=== PATIENT | female | born 1980 | race Caucasian/White ===

== ENCOUNTER 2021-10-14 13:08 | Observation (INO) ==
[2021-10-14] MEDS ORDERED: VANCOMYCIN PER PHARMACY IV ONE (13:33)
[2021-10-14] MEDS ORDERED: PIPERACILLIN SODIUM/TAZOBACTAM 3.375 GM in DEXTROSE 5% IN WATER 50 ML IV ONE (13:33)
[2021-10-14] MEDS ORDERED: 0.9 % SODIUM CHLORIDE 1,640 ML IV ONE (13:33)
[2021-10-14 13:39] LABS: POC Calcium, Ionized 1.16 (1.16-1.32); POC Creatinine 0.6 (0.6-1.2); POC Potassium 4.4 (3.3-5.1)
--- NOTE | 2021-10-14 13:39 | Emergency Department Note ---
Skin/Abscess/FB HPI General Chief complaint: Skin/Abscess/Rash Stated complaint: possibly cellulitus Time Seen by Provider: 10/14/21 13:14 Source: patient and family Mode of arrival: ambulatory Limitations: no limitations History of Present Illness HPI Narrative: Narrative: 41-year-old female with a history of recurrent cellulitis with multiple admissions and history of sepsis secondary to soft tissue cellulitis of lower extremity presents the ER to be evaluated for increasing redness, tenderness and swelling of the right lower extremity with a fever of 101.8 and tachycardia. She states she feels like previous episodes of cellulitis that led to sepsis. She has noticed over the last few days the increasing redness and swelling. She woke up with a fever this morning and has had body aches that been ascending from the right lower extremity up her body. She has not had any nausea vomiting, chest pain, chest pressure or shortness of breath she denies abdominal pain, dysuria, urgency or frequency. She states she has friction boils on her inner thighs. She has no other complaints at this time. She does not take any medications on a daily basis but she did start clindamycin yesterday. Related Data Home Medications Medication Instructions Recorded Confirmed albuterol sulfate 90 mcg/actuation 2 puff inhalation Q6H PRN Wheezing 05/28/19 10/14/21 aerosol inhaler (ProAir HFA) Allergies Allergy/AdvReac Type Severity Reaction Status Date / Time codeine Allergy Intermediate Headache Verified 09/28/19 10:43 Review of Systems ROS ROS Narrative: Narrative: All systems ED: reviewed and negative except as stated. PFS Narrative Patient History Narrative: Narrative: Medical/Surgical/Family History All Active Problems (Updated 10/14/21 @ 16:02 by Reynaldo Moore PA-C) Chronic sinusitis (Acute) Cellulitis (Acute) Dental abscess (Acute) Cough (Acute) History of allergic rhinitis (Acute) History of asthma (Acute) Social History Smoking Status: Never smoker Substance Use: does not use Exam Narrative Narrative: Narrative: Gen: No acute distress Eyes: PERRL, no conjunctival injection , and symmetrical lids. Sclerae non icteric HENMT: Normocephalic Atraumatic head, external nose and ears. Moist MM. CVS: +S1/S2, No murmurs or gallops. Radial pulses 2+ and equal bilat. No swelling RESP: Unlabored respiratory effort . Clear to auscultation bilaterally (CTAB). No noted wheezes rales or ronchi. GI: Nontender/Nondistended (NTND), No focal tenderness : Patient has boils on mons pubis and on both inner thighs without any evidence of cellulitis. MSK: Cellulitis on the right anterior mera with warmth, scar from previous cellulitis. There is a significant margin of erythema and it is very warm. There is no drainage, fluctuance or purulence. DP and PT are 2+, cap refill less than 2 Skin: Warm, Dry .. Cap refill less than 2. Psych: Awake, Alert, & Oriented (AAO) x3. Appropriate mood and affect . General Limitations: no limitations Course Vital Signs Vital signs: Vital Signs Temperature 101.8 F H 10/14/21 13:10 Pulse Rate 119 H 10/14/21 13:10 Respiratory Rate 18 10/14/21 13:10 Blood Pressure 126/69 10/14/21 13:10 Pulse Oximetry (%) 96 10/14/21 13:10 Oxygen Delivery Method 10/14/21 13:10 Temperature 100.9 F H 10/14/21 14:22 Pulse Rate 105 H 10/14/21 15:55 Respiratory Rate 16 10/14/21 15:55 Blood Pressure 124/64 10/14/21 15:55 Pulse Oximetry (%) 99 10/14/21 15:55 Oxygen Delivery Method 10/14/21 13:10 MDM MDM Narrative Medical decision making narrative: Narrative: Patient denies history of MRSA as she has a history of cellulitis and sepsis secondary to this. She is tachycardic at 119 and febrile with a temperature of 101.8. She will be assumed septic at time of evaluation and will be started on vancomycin and Zosyn will be given empiric fluid bolus. She will be evaluated with a CBC, Chem-8, hepatic panel, CG 4, ESR, CRP, procalcitonin, UA, chest x- ray, flu, covid and MRSA. And blood cultures Blood Cultures: Pending CBC: White count of 18.7 with left shift Chem-8: Normal Hepatic panel: Normal CG 4: Lactic acid is normal, unremarkable ESR: 29 H CRP: Very elevated at 4.3 Procalcitonin: elevated at 0.14 Flu: Negative Covid: Negative MRSA: Pending UA: Pending Dip shows no evidence of infection Chest x-ray:IMPRESSION: No acute disease Interpreted and Authenticated by: Garrett Simon 10/14/21 Reevaluation: Patient states she is improving after fluids. Exam remains the same. Repeat lactate will be ordered. Lactic: Patient will be admitted for cellulitis Dr. Frederick will be down to evaluate the patient. Sepsis Sepsis Identified: Yes Time Zero: 1340 Lab Data Result diagrams: 10/14/21 13:36 Labs: Lab Results 10/14/21 10/14/21 10/14/21 Range/Units 13:30 13:30 13:30 WBC TNP RBC TNP Hgb TNP Hct TNP POC Hct (36-48) MCV TNP MCH TNP MCHC TNP RDW TNP Plt Count TNP MPV TNP Immature Gran % (Auto) TNP Neut % (Auto) TNP Lymph % (Auto) TNP [place] % (Auto) TNP Eos % (Auto) TNP Baso % (Auto) TNP Lymph # (Auto) TNP [place] # (Auto) TNP Eos # (Auto) TNP Baso # (Auto) TNP Immature Gran # TNP Absolute Neutrophils TNP Differential Comment TNP ESR TNP POC VBG pH (7.32-7.42) POC VBG pCO2 at Temp (41-51) POC VBG pO2 (25-40) POC VBG HCO3 (24-28) POC VBG Total CO2 (25-29) POC Venous O2 Sat (40-70) POC VBG Base Excess (-2-2) VBG Lactic Acid (0.5-2) POC Sodium (133-145) POC Potassium (3.3-5.1) POC Chloride (96-108) POC Total CO2 (22-30) POC BUN (6-20) POC Creatinine (0.6-1.2) POC Glucose (70-105) POC WB Ioniz Calcium (1.16-1.32) Total Bilirubin 0.5 (0.1-1.0) mg/dL Direct Bilirubin < 0.2 (0-0.3) mg/dL AST 20 (<32) U/L ALT 19 (<40) U/L Alkaline Phosphatase 76 (39-117) U/L C-Reactive Protein 4.30 H (0.03-0.80) mg/dL Total Protein 7.3 (5.9-8.4) gm/dL Albumin 4.1 (3.2-5.2) gm/dL Globulin 3.2 (2.2-3.7) gm/dL Procalcitonin 0.14 H (<0.10) ng/mL 10/14/21 10/14/21 10/14/21 Range/Units 13:34 13:36 13:36 WBC 18.7 H RBC 4.80 Hgb 13.0 Hct 40.9 POC Hct 42.0 (36-48) MCV 85.2 MCH 27.1 MCHC 31.8 RDW 13.4 Plt Count 367 MPV 10.4 Immature Gran % (Auto) 0.5 Neut % (Auto) 88.4 H Lymph % (Auto) 5.9 L [place] % (Auto) 4.7 Eos % (Auto) 0.2 Baso % (Auto) 0.3 Lymph # (Auto) 1.10 L [place] # (Auto) 0.88 Eos # (Auto) 0.03 Baso # (Auto) 0.05 Immature Gran # 0.09 H Absolute Neutrophils 16.50 H Differential Comment ESR 29 H POC VBG pH 7.45 H (7.32-7.42) POC VBG pCO2 at Temp 39.1 L (41-51) POC VBG pO2 41 H (25-40) POC VBG HCO3 27.2 (24-28) POC VBG Total CO2 28.0 (25-29) POC Venous O2 Sat 79.0 H (40-70) POC VBG Base Excess 3.0 H (-2-2) VBG Lactic Acid 1.4 (0.5-2) POC Sodium 137 (133-145) POC Potassium 4.4 (3.3-5.1) POC Chloride 102 (96-108) POC Total CO2 27.0 (22-30) POC BUN 11 (6-20) POC Creatinine 0.6 (0.6-1.2) POC Glucose 101 (70-105) POC WB Ioniz Calcium 1.16 (1.16-1.32) Total Bilirubin (0.1-1.0) mg/dL Direct Bilirubin (0-0.3) mg/dL AST (<32) U/L ALT (<40) U/L Alkaline Phosphatase (39-117) U/L C-Reactive Protein (0.03-0.80) mg/dL Total Protein (5.9-8.4) gm/dL Albumin (3.2-5.2) gm/dL Globulin (2.2-3.7) gm/dL Procalcitonin (<0.10) ng/mL ED POC Tests ED POC Tests: PHI - Influenza A Negative PHI - Influenza B Negative PHI - SARS Antigen Negative Discharge Plan Patient/Caregiver Discharge Instructions Pt seen by DEVELOPMENT ARCHITECT/PA only: Yes Clinical Impression: Cellulitis Patient Disposition: Xfer As Inpt ([facility]) Follow up with: No,PCP [Primary Care Provider] - Prescriptions: No Action albuterol sulfate [ProAir HFA] 90 mcg/actuation HFA aerosol inhaler 2 puff INHALATION Q6H PRN (Reason: Wheezing)
[2021-10-14] MEDS ORDERED: VANCOMYCIN 1,500 MG in 0.9 % SODIUM CHLORIDE 500 ML IV SCH (13:45)
--- NOTE | 2021-10-14 14:11 | XRay Report ---
CLINICAL INFORMATION: Cough COMPARISON: None. TECHNIQUE: Portable FINDINGS: The heart size, mediastinum and pulmonary vessels are unremarkable. 7 cm rounded density, in the right cardiophrenic angle, likely represents a prominent fat pad or pericardial cyst. The lungs are clear. There are no effusions. The bones and soft tissues are within normal limits. IMPRESSION: No acute disease Interpreted and Authenticated by: Garrett Simon 10/14/21
[2021-10-14] MEDS ORDERED: ACETAMINOPHEN 325 MG TABLET PO ONE (14:22)
[2021-10-14 14:45] LABS: ALT/SGPT 19 U/L (<40); AST/SGOT 20 U/L (<32); Albumin 4.1 gm/dL (3.2-5.2); Alkaline Phosphatase 76 U/L (39-117); Bilirubin,Direct < 0.2 mg/dL (0-0.3); Bilirubin,Total 0.5 mg/dL (0.1-1.0); Globulin 3.2 gm/dL (2.2-3.7)
[2021-10-14 15:19] LABS: Basophils # (Auto) 0.05 K/mcL (0.00-0.30); Basophils % (Auto) 0.3 % (0.0-2.0); Eosinophils # (Auto) 0.03 K/mcL (0.00-0.70); Eosinophils % (Auto) 0.2 % (0.0-7.0); Hematocrit 40.9 % (34.1-44.9); Lymphocytes % (Auto) 5.9 % (15.5-49.0); Mean Cell Volume 85.2 fL (80.0-100.0); Mean Corpuscular HGB Conc 31.8 g/dL (31.0-36.0); Mean Platelet Volume 10.4 fL (7.4-10.4); Monocytes # (Auto) 0.88 K/mcL (0.10-0.90); Monocytes % (Auto) 4.7 % (1.0-12.0); Neutrophils % (Auto) 88.4 % (38.0-78.0); Platelet Count 367 K/mcL (140-440); Red Cell Distribution Width 13.4 % (11.5-14.5); WBC 18.7 K/mcL (4.5-11.0)
[2021-10-14 15:34] LABS: Erythrocyte Sedimentation Rate 29 mm/hr (0-20)
--- NOTE | 2021-10-14 17:06 | Internal Med History&Physical ---
HPI History of Present Illness Patient information: Note initiated : 10/14/21 at 4:59 pm Service Date, if different from initiated Date: [] Patient: Adelina Bryant 41 y/o F admitted on for possibly cellulitus. Chief Complaint: [] History of present illness: Ms. Bryant is a 41 year old female with a history of allergies, asthma, obesity, prior episodes of cellulitis who presents to the emergency department with right lower extremity redness, warmth, tenderness, as well as chills and a fever at home. Patient was concerned about cellulitis as this is similar to her prior episodes of cellulitis. In the emergency department, the patient had a fever, was tachycardic and intermittently hypotensive. Laboratory work-up revealed a leukocytosis, lactic acid was normal. The patient received vancomycin and Zosyn in the ED as well as IV fluid. Hospital medicine was consulted for admission. The patient denies a history of MRSA infections. She says that she last had a course of antibiotics about 2 years ago. The cellulitis on her right lower extremity is nonpurulent. Review of systems Constitutional: Positive for chills and fever Eyes: no vision changes or pain Cardiovascular: no chest pain, no palpitations Respiratory: no cough or dyspnea Gastrointestinal: no abdominal pain, no nausea, vomiting, or diarrhea Genitourinary: no dysuria or difficulty voiding Musculoskeletal: no arthralgia or myalgia Integumentary: Positive for right lower extremity redness and tenderness Neurological: no focal weakness or numbness Psychiatric: no anxiety or depression Physical exam Head: Atraumatic, normal inspection. Eyes: normal appearance, no scleral icterus. Neck: full ROM Respiratory: no respiratory distress. Cardiovascular: normal rate and rhythm, S1, S2. GI/Abdominal: soft, nontender, no guarding. Extremities: full range of motion, nontender. Neurological: CN II-XII intact, intact motor, intact sensation. Psychiatric: normal mood. Skin: Nonpurulent erythema on right leg. PFSH PFSH All Active Problems (Updated 10/14/21 @ 16:02 by Reynaldo Moore PA-C) Chronic sinusitis (Acute) Cellulitis (Acute) Dental abscess (Acute) Cough (Acute) History of allergic rhinitis (Acute) History of asthma (Acute) Social History (Updated 05/28/19 @ 14:00 by SHINE Youngblood smoking status: Never smoker substance use type: does not use MEDS/ALLERGIES Home Medications and Allergies Home Medications Medication Instructions Recorded Confirmed Type albuterol sulfate 90 mcg/actuation 2 puff inhalation Q6H PRN Wheezing 05/28/19 10/14/21 History aerosol inhaler (ProAir HFA) Allergies Allergy/AdvReac Type Severity Reaction Status Date / Time codeine Allergy Intermediate Headache Verified 09/28/19 10:43 EXAM Constitutional Vitals: Temp Pulse Resp BP Pulse Ox O2 Del Method 100.9 F H 95 H 14 113/51 96 10/14/21 14:22 10/14/21 16:41 10/14/21 16:41 10/14/21 16:41 10/14/21 16:41 10/14/21 13:10 DATA Data Completed and Pending Labs: Labs from last 24 hours 10/14/21 10/14/21 10/14/21 16:09 15:50 13:36 WBC 18.7 H RBC 4.80 Hgb 13.0 Hct 40.9 POC Hct MCV 85.2 MCH 27.1 MCHC 31.8 RDW 13.4 Plt Count 367 MPV 10.4 Immature Gran % (Auto) 0.5 Neut % (Auto) 88.4 H Lymph % (Auto) 5.9 L [place] % (Auto) 4.7 Eos % (Auto) 0.2 Baso % (Auto) 0.3 Lymph # (Auto) 1.10 L [place] # (Auto) 0.88 Eos # (Auto) 0.03 Baso # (Auto) 0.05 Immature Gran # 0.09 H Absolute Neutrophils 16.50 H Differential Comment ESR 29 H POC VBG pH POC VBG pCO2 at Temp POC VBG pO2 POC VBG HCO3 POC VBG Total CO2 POC Venous O2 Sat POC VBG Base Excess VBG Lactic Acid 0.7 POC Sodium POC Potassium POC Chloride POC Total CO2 POC BUN POC Creatinine POC Glucose POC WB Ioniz Calcium Total Bilirubin Direct Bilirubin AST ALT Alkaline Phosphatase C-Reactive Protein Total Protein Albumin Globulin Procalcitonin Urine Color Pending Urine Appearance Pending Urine pH Pending Ur Specific [place] Pending Urine Protein Pending Urine Glucose (UA) Pending Urine Ketones Pending Urine Occult Blood Pending Urine Nitrate Pending Urine Bilirubin Pending Urine Urobilinogen Pending Ur Leukocyte Esterase Pending 10/14/21 10/14/21 10/14/21 13:36 13:34 13:30 WBC TNP RBC TNP Hgb TNP Hct TNP POC Hct 42.0 MCV TNP MCH TNP MCHC TNP RDW TNP Plt Count TNP MPV TNP Immature Gran % (Auto) TNP Neut % (Auto) TNP Lymph % (Auto) TNP [place] % (Auto) TNP Eos % (Auto) TNP Baso % (Auto) TNP Lymph # (Auto) TNP [place] # (Auto) TNP Eos # (Auto) TNP Baso # (Auto) TNP Immature Gran # TNP Absolute Neutrophils TNP Differential Comment TNP ESR TNP POC VBG pH 7.45 H POC VBG pCO2 at Temp 39.1 L POC VBG pO2 41 H POC VBG HCO3 27.2 POC VBG Total CO2 28.0 POC Venous O2 Sat 79.0 H POC VBG Base Excess 3.0 H VBG Lactic Acid 1.4 POC Sodium 137 POC Potassium 4.4 POC Chloride 102 POC Total CO2 27.0 POC BUN 11 POC Creatinine 0.6 POC Glucose 101 POC WB Ioniz Calcium 1.16 Total Bilirubin Direct Bilirubin AST ALT Alkaline Phosphatase C-Reactive Protein Total Protein Albumin Globulin Procalcitonin Urine Color Urine Appearance Urine pH Ur Specific [place] Urine Protein Urine Glucose (UA) Urine Ketones Urine Occult Blood Urine Nitrate Urine Bilirubin Urine Urobilinogen Ur Leukocyte Esterase 10/14/21 10/14/21 13:30 13:30 WBC RBC Hgb Hct POC Hct MCV MCH MCHC RDW Plt Count MPV Immature Gran % (Auto) Neut % (Auto) Lymph % (Auto) [place] % (Auto) Eos % (Auto) Baso % (Auto) Lymph # (Auto) [place] # (Auto) Eos # (Auto) Baso # (Auto) Immature Gran # Absolute Neutrophils Differential Comment ESR POC VBG pH POC VBG pCO2 at Temp POC VBG pO2 POC VBG HCO3 POC VBG Total CO2 POC Venous O2 Sat POC VBG Base Excess VBG Lactic Acid POC Sodium POC Potassium POC Chloride POC Total CO2 POC BUN POC Creatinine POC Glucose POC WB Ioniz Calcium Total Bilirubin 0.5 Direct Bilirubin < 0.2 AST 20 ALT 19 Alkaline Phosphatase 76 C-Reactive Protein 4.30 H Total Protein 7.3 Albumin 4.1 Globulin 3.2 Procalcitonin 0.14 H Urine Color Urine Appearance Urine pH Ur Specific [place] Urine Protein Urine Glucose (UA) Urine Ketones Urine Occult Blood Urine Nitrate Urine Bilirubin Urine Urobilinogen Ur Leukocyte Esterase A/P Narrative A/P Narrative: Assessment: 41 year old female with a history of allergies, asthma, obesity, history of lower extremity cellulitis, admitted for sepsis secondary to nonpurulent cellulitis of her right leg. #Sepsis secondary to cellulitis #Nonpurulent cellulitis of right leg #Asthma, stable #History of allergies #Obesity BMI 56 Plan -Cefazolin 2 mg IV Q8 for nonpurulent cellulitis. -IV fluid. -Follow blood cultures. -Follow CBC with differential. -Demarcate cellulitis and follow. -Continue home asthma inhaler. -Regular diet. -DVT prophylaxis: Lovenox -CODE STATUS: Full -Disposition: Home when stable. Time Spent With Patient Time: Total time spent is greater than 50% in coordination of care (as documented) at patient's floor/unit and/or counseling patient:
[2021-10-14 17:08] LABS: Appearance,Urine Slightly Cloudy (Clear); Bilirubin,Urine Negative (Negative); Color,Urine Yellow; Culture Indicated,Urine No; Glucose,Urine (UA) Negative (Negative); Ketones,Urine Negative (Negative); Leukocyte Esterase,Urine Negative /uL (Negative); Mucus,Urine FEW /hpf; Nitrate,Urine Negative (Negative); PH,Urine 8.5 (5.0-9.0); Specific Gravity,Urine 1.015 (1.000-1.035); Urine Blood Negative ery/mcL (Negative); Urine RBC 1 /hpf (0-3); Urine Squamous Epithelial Cell 4 /hpf (0-4); Urine WBC 1 /hpf (0-4); Urobilinogen,Urine Normal
[2021-10-14] MEDS ORDERED: IBUPROFEN 600 MG TABLET PO PRN (17:38)
[2021-10-14] MEDS ORDERED: HYDROcodone/APAP 5/325MG TABLET PO PRN (17:38)
[2021-10-14] MEDS ORDERED: ceFAZolin 2 GM in DEXTROSE 5% IN WATER 50 ML IV SCH (17:38)
[2021-10-14] MEDS ORDERED: ONDANSETRON 4 MG/2 ML VIAL IV PRN (17:38)
[2021-10-14] MEDS ORDERED: ACETAMINOPHEN 325 MG TABLET PO PRN (17:38)
[2021-10-14] MEDS: 0.9 % SODIUM CHLORIDE 1,000 ML IV SCH (18:07)
[2021-10-14] MEDS: ceFAZolin 1 GM VIAL IV SCH ×2 (18:07→23:21)
[2021-10-14] MEDS: DOCUSATE SODIUM 100 MG CAPSULE PO SCH (20:36)
[2021-10-14] MEDS: 0.9 % SODIUM CHLORIDE 10 ML SYRINGE IV SCH (20:37)
[2021-10-14] MEDS ORDERED: SENNOSIDES 1 TABLET PO SCH (21:00)
[2021-10-15] MEDS: 0.9 % SODIUM CHLORIDE 1,000 ML IV SCH ×2 (00:29→07:17)
[2021-10-15] MEDS: 0.9 % SODIUM CHLORIDE 10 ML SYRINGE IV SCH (05:20)
[2021-10-15 07:13] LABS: Hematocrit 39.3 % (34.1-44.9); Hemoglobin 12.1 g/dL (11.2-15.7); Mean Cell Volume 86.9 fL (80.0-100.0); Mean Corpuscular HGB Conc 30.8 g/dL (31.0-36.0); Mean Platelet Volume 9.7 fL (7.4-10.4); Platelet Count 306 K/mcL (140-440); RBC 4.52 M/mcL (3.59-5.38); Red Cell Distribution Width 13.6 % (11.5-14.5); WBC 7.5 K/mcL (4.5-11.0)
[2021-10-15 07:44] LABS: Blood Urea Nitrogen 7 mg/dL (6-20); Calcium 8.1 mg/dL (8.6-10.4); Carbon Dioxide 21 mmol/L (22-30); Chloride 108 mmol/L (96-108); Glomerular Filtration Rate 121; Glucose 92 mg/dL (70-105)
--- NOTE | 2021-10-15 08:07 | Discharge Summary ---
Discharge Provider Provider IMPORTANT FOLLOW-UP INFORMATION FOR PCP: Patient information: Note initiated : 10/15/21 at 8:05 am Service Date, if different from initiated Date: [] Patient: Adelina Bryant 41 y/o F admitted on 10/14/21 for possibly cellulitus/Cellulitus. Chief Complaint: [] Date of admission: 10/14/21 17:33 Discharge date: 10/15/21 Primary care physician: PCP No Consults: 10/14/21 15:03 Consult to Physician [CONS] Stat Comment: Consulting Provider: Beau Frederick Reason For Exam: Physician to Consult COURSE Hospital Course Hospital course: Ms. Bryant is a 41 year old female with a history of allergies, asthma, obesity, prior episodes of cellulitis who presents to the emergency department with right lower extremity redness, warmth, tenderness, as well as chills and a fever at home. Patient was concerned about cellulitis as this is similar to her prior episodes of cellulitis. In the emergency department, the patient had a fever, was tachycardic and intermittently hypotensive. Laboratory work-up revealed a leukocytosis, lactic acid was normal. The patient received vancomycin and Zosyn in the ED as well as IV fluid. Hospital medicine was consulted for admission. The patient denies a history of MRSA infections. She says that she last had a course of antibiotics about 2 years ago. The cellulitis on her right lower extremity is nonpurulent. 10/15: Cellulitis improving, leukocytosis resolved, afebrile overnight. Discharged home with a prescription for 7 days of Keflex. Physical exam Head: Atraumatic, normal inspection. Eyes: normal appearance, no scleral icterus. Neck: full ROM Respiratory: no respiratory distress. Cardiovascular: normal rate and rhythm, S1, S2. GI/Abdominal: soft, nontender, no guarding. Extremities: full range of motion, nontender. Neurological: CN II-XII intact, intact motor, intact sensation. Psychiatric: normal mood. Skin: Nonpurulent erythema on right leg. Discharge diagnosis: None purulent cellulitis of right lower extremity Time Spent with Patient Time attestation: Total time spent providing and/or coordinating discharge services: Time spent: Less than 30 minutes EXAM Constitutional Vitals: Temp Pulse Resp BP Pulse Ox O2 Del Method 97.2 F 85 20 102/58 95 10/15/21 07:48 10/15/21 07:48 10/15/21 07:48 10/15/21 07:48 10/15/21 07:48 10/15/21 07:48 Discharge Data Data Completed and Pending Labs on day of discharge: Labs from last 24 hours 10/15/21 10/15/21 10/14/21 05:47 05:47 16:09 WBC 7.5 RBC 4.52 Hgb 12.1 Hct 39.3 POC Hct MCV 86.9 MCH 26.8 MCHC 30.8 L RDW 13.6 Plt Count 306 MPV 9.7 Immature Gran % (Auto) Neut % (Auto) Lymph % (Auto) [place] % (Auto) Eos % (Auto) Baso % (Auto) Lymph # (Auto) [place] # (Auto) Eos # (Auto) Baso # (Auto) Immature Gran # Absolute Neutrophils Differential Comment Platelet Estimate Pending RBC Morphology Pending ESR POC VBG pH POC VBG pCO2 at Temp POC VBG pO2 POC VBG HCO3 POC VBG Total CO2 POC Venous O2 Sat POC VBG Base Excess VBG Lactic Acid 0.7 POC Sodium Sodium 138 POC Potassium Potassium 3.6 POC Chloride Chloride 108 Carbon Dioxide 21 L POC Total CO2 Anion Gap 9.0 POC BUN BUN 7 Creatinine 0.5 L POC Creatinine GFR Calculation 121 Glucose 92 POC Glucose Calcium 8.1 L POC WB Ioniz Calcium Total Bilirubin Direct Bilirubin AST ALT Alkaline Phosphatase C-Reactive Protein Total Protein Albumin Globulin Procalcitonin Urine Color Urine Appearance Urine pH Ur Specific [place] Urine Protein Urine Glucose (UA) Urine Ketones Urine Occult Blood Urine Nitrate Urine Bilirubin Urine Urobilinogen Ur Leukocyte Esterase Urine RBC Urine WBC Ur Squamous Epith Cells Urine Bacteria Urine Mucus Ur Culture Indicated? 10/14/21 10/14/21 10/14/21 15:50 13:36 13:36 WBC 18.7 H RBC 4.80 Hgb 13.0 Hct 40.9 POC Hct MCV 85.2 MCH 27.1 MCHC 31.8 RDW 13.4 Plt Count 367 MPV 10.4 Immature Gran % (Auto) 0.5 Neut % (Auto) 88.4 H Lymph % (Auto) 5.9 L [place] % (Auto) 4.7 Eos % (Auto) 0.2 Baso % (Auto) 0.3 Lymph # (Auto) 1.10 L [place] # (Auto) 0.88 Eos # (Auto) 0.03 Baso # (Auto) 0.05 Immature Gran # 0.09 H Absolute Neutrophils 16.50 H Differential Comment Platelet Estimate RBC Morphology ESR 29 H POC VBG pH 7.45 H POC VBG pCO2 at Temp 39.1 L POC VBG pO2 41 H POC VBG HCO3 27.2 POC VBG Total CO2 28.0 POC Venous O2 Sat 79.0 H POC VBG Base Excess 3.0 H VBG Lactic Acid 1.4 POC Sodium Sodium POC Potassium Potassium POC Chloride Chloride Carbon Dioxide POC Total CO2 Anion Gap POC BUN BUN Creatinine POC Creatinine GFR Calculation Glucose POC Glucose Calcium POC WB Ioniz Calcium Total Bilirubin Direct Bilirubin AST ALT Alkaline Phosphatase C-Reactive Protein Total Protein Albumin Globulin Procalcitonin Urine Color Yellow Urine Appearance Slightly cloudy A Urine pH 8.5 Ur Specific [place] 1.015 Urine Protein 30 mg/dl A Urine Glucose (UA) Negative Urine Ketones Negative Urine Occult Blood Negative Urine Nitrate Negative Urine Bilirubin Negative Urine Urobilinogen Normal Ur Leukocyte Esterase Negative Urine RBC 1 Urine WBC 1 Ur Squamous Epith Cells 4 Urine Bacteria None Urine Mucus Few A Ur Culture Indicated? No 10/14/21 10/14/21 10/14/21 13:34 13:30 13:30 WBC TNP RBC TNP Hgb TNP Hct TNP POC Hct 42.0 MCV TNP MCH TNP MCHC TNP RDW TNP Plt Count TNP MPV TNP Immature Gran % (Auto) TNP Neut % (Auto) TNP Lymph % (Auto) TNP [place] % (Auto) TNP Eos % (Auto) TNP Baso % (Auto) TNP Lymph # (Auto) TNP [place] # (Auto) TNP Eos # (Auto) TNP Baso # (Auto) TNP Immature Gran # TNP Absolute Neutrophils TNP Differential Comment TNP Platelet Estimate RBC Morphology ESR TNP POC VBG pH POC VBG pCO2 at Temp POC VBG pO2 POC VBG HCO3 POC VBG Total CO2 POC Venous O2 Sat POC VBG Base Excess VBG Lactic Acid POC Sodium 137 Sodium POC Potassium 4.4 Potassium POC Chloride 102 Chloride Carbon Dioxide POC Total CO2 27.0 Anion Gap POC BUN 11 BUN Creatinine POC Creatinine 0.6 GFR Calculation Glucose POC Glucose 101 Calcium POC WB Ioniz Calcium 1.16 Total Bilirubin 0.5 Direct Bilirubin < 0.2 AST 20 ALT 19 Alkaline Phosphatase 76 C-Reactive Protein 4.30 H Total Protein 7.3 Albumin 4.1 Globulin 3.2 Procalcitonin Urine Color Urine Appearance Urine pH Ur Specific [place] Urine Protein Urine Glucose (UA) Urine Ketones Urine Occult Blood Urine Nitrate Urine Bilirubin Urine Urobilinogen Ur Leukocyte Esterase Urine RBC Urine WBC Ur Squamous Epith Cells Urine Bacteria Urine Mucus Ur Culture Indicated? 10/14/21 13:30 WBC RBC Hgb Hct POC Hct MCV MCH MCHC RDW Plt Count MPV Immature Gran % (Auto) Neut % (Auto) Lymph % (Auto) [place] % (Auto) Eos % (Auto) Baso % (Auto) Lymph # (Auto) [place] # (Auto) Eos # (Auto) Baso # (Auto) Immature Gran # Absolute Neutrophils Differential Comment Platelet Estimate RBC Morphology ESR POC VBG pH POC VBG pCO2 at Temp POC VBG pO2 POC VBG HCO3 POC VBG Total CO2 POC Venous O2 Sat POC VBG Base Excess VBG Lactic Acid POC Sodium Sodium POC Potassium Potassium POC Chloride Chloride Carbon Dioxide POC Total CO2 Anion Gap POC BUN BUN Creatinine POC Creatinine GFR Calculation Glucose POC Glucose Calcium POC WB Ioniz Calcium Total Bilirubin Direct Bilirubin AST ALT Alkaline Phosphatase C-Reactive Protein Total Protein Albumin Globulin Procalcitonin 0.14 H Urine Color Urine Appearance Urine pH Ur Specific [place] Urine Protein Urine Glucose (UA) Urine Ketones Urine Occult Blood Urine Nitrate Urine Bilirubin Urine Urobilinogen Ur Leukocyte Esterase Urine RBC Urine WBC Ur Squamous Epith Cells Urine Bacteria Urine Mucus Ur Culture Indicated? Discharge Plan Patient/Caregiver Discharge Instructions Activity: increase activity as tolerated Prescriptions: New cephalexin 500 mg capsule 500 mg PO QID 7 Days Qty: 28 1RF Continued albuterol sulfate [ProAir HFA] 90 mcg/actuation HFA aerosol inhaler 2 puff INHALATION Q6H PRN (Reason: Wheezing) Follow Up Plan Follow up with: No,PCP [Primary Care Provider] - Patient Disposition: Home, Self-Care Overall status at discharge: patient is progressing back to baseline Discharge Orders: Discharge Order (Routine); Ordered 10/15/21 Ordered By: Beau NICK VTE Deep Vein Thrombosis/Pulmonary Embolism Present on Admission: [place]
[2021-10-15] MEDS ORDERED: ENOXAPARIN 40 MG/0.4 ML SYRINGE SQ SCH (09:00)
[2021-10-15] MEDS: DOCUSATE SODIUM 100 MG CAPSULE PO SCH (09:08)
[2021-10-15] MEDS: ceFAZolin 1 GM VIAL IV SCH (09:08)
[2021-10-15 09:53] LABS: Band Neutrophils % 3 % (0-10); Eosinophils % (Manual) 1 % (0-7); Lymphocytes % 17 % (15-49); Monocytes % (Manual) 3 % (1-12); Platelet Estimate NORMAL (Normal); RBC Morphology NORMAL (Normal); Segmented Neutrophils % 76 % (38-78)
== END 2021-10-15 10:45 | disposition home or self-care (01) ==
LOC: ED 13:08 → INTOOBSV 17:33 → MEDSUR 17:33
PROVIDERS: ADMIT Internal Medicine; ATTEND Internal Medicine